=== PATIENT | female | born 1980 | race Caucasian/White ===

== ENCOUNTER → 2024-10-28 06:43 | Outpatient (REF) | payer OTHER, SELFPAY | LOC: HWWDC 06:43 | PROVIDERS: ATTENDING PHYSICIAN Nurse Practitioner Adult Health; FAMILY PHYSICIAN Student in an Organized Health Care Education/Training Program | DX: Z12.31 Encounter for screening mammogram for malignant neoplasm of breast (principal) | CPT/HCPCS: 77063; 77067 ==

== ENCOUNTER 2024-11-17 18:58 | Emergency (ER) | payer OTHER, SELFPAY ==
[2024-11-17 19:01] VITALS: BP 138/97
[2024-11-17 19:18] LABS: % Basophils 0.3 % (0-2); % Eosinophils 0.8 % (0-6); % Lymphocytes 26.4 % (20.5-51.1); % Monocytes 4.9 % (1.7-9.3); % Neutrophils 66.6 % (42.2-75.2); Absolute Eosinophils 0.1 10^3/uL (0-0.7); Absolute Immature Granulocytes 0.1 10^3/uL (0-0.05); Absolute Lymphocytes 2.8 10^3/uL (1.2-3.4); Absolute Monocytes 0.5 10^3/uL (0.1-0.6); Absolute Neutrophils 7.1 10^3/uL (1.4-6.5); Hematocrit 36.3 % (37.0-47.0); Hemoglobin 12.7 g/dL (12.0-16.0); Mean Corpuscular Hgb 30.7 pg (27.0-31.0); Mean Corpuscular Volume 87.7 fL (81.0-99.0); Mean Platelet Volume 9.3 fL (7.4-10.4); Nucleated Red Blood Cells % 0 %; Platelet Count 425 10^3/uL (130-400); Red Blood Cell Count 4.14 10^6/uL (4.20-5.40); Red Cell Dist. Width 12.8 % (11.5-14.5); White Blood Cell Count 10.7 10^3/uL (4.8-10.8)
[2024-11-17 19:40] LABS: ALT (SGPT) 32 U/L (0-35); AST (SGOT) 30 U/L (14-36); Albumin 4.6 g/dl (3.5-5.0); Alkaline Phosphatase 93 U/L (38-126); Blood Urea Nitrogen 15 mg/dl (7-17); Calcium 9.5 mg/dl (8.4-10.2); Carbon Dioxide 30 mmol/L (22-30); Glucose 97 mg/dl (70-99); Total Bilirubin 0.4 mg/dl (0.2-1.3); Total Protein 7.6 g/dl (6.3-8.2); eGFR > 60.00
[2024-11-17 19:44] LABS: Chloride 96 mmol/L (98-107); Potassium 3.9 mmol/L (3.5-5.1); Sodium 137 mmol/L (135-145)
[2024-11-17 23:02] VITALS: BP 115/83
[2024-11-17 23:48] VITALS: BMI 28.0
[2024-11-17 23:50] VITALS: BP 125/90
[2024-11-18 00:52] LABS: COVID-19 Antigen Negative (Negative)
[2024-11-18 01:00] VITALS: BP 117/62
--- NOTE | 2024-11-18 01:07 | ED.GENMED ---
History of Present Illness
General
Chief Complaint: Breathing Problem
Source: patient
Exam Limitations: none
Time Seen by Provider: 11/18/24 00:10
Nursing documentation reviewed up to this point in time: agreed with
History of Present Illness
History of Present Illness:
44-year-old female with a past medical history of hypertension presents to the ER for persistent cough and shortness of breath. Patient reports that she started with a hacking cough about 2 weeks ago and it has been constant since that time. She
reports it is productive of clear to yellow sputum. She reports that she has had some associated congestion and initially also had fever although fever has since resolved. She says after a week of symptoms she went to urgent care 11/09/2024 where
she was diagnosed with pneumonia on x-ray there; she says she was started on clarithromycin 500 mg twice daily for pneumonia. She says that she took this for 1 week but despite this treatment she has had worsening cough and is having some
tightness/shortness of breath. For this reason she returned to urgent care today she said she was told that she had worsening pneumonia on the x-ray and she was referred to the ER for evaluation. She denies any chest pain. She denies any GI
symptoms. She denies any leg swelling. Denies any other complaints. She denies any history of asthma. She says she is a former smoker quit 7 years ago.
Review of Systems
Review of Systems
All Other Systems: ROS reviewed and negative except as documented in HPI and ROS
Constitutional: Denies fever or chills
EENT: Reports other (Congestion); Denies sore throat
Respiratory: Reports cough and trouble breathing
Cardiac: Denies chest pain or palpitations
ABD/GI: Denies abdominal pain, nausea, vomiting or diarrhea
: Denies flank pain
Musculoskeletal: Denies edema, neck pain or back pain
Neurological: Denies dizzy or headache
Phy Exam
Physical Exam
Physical Exam:
General: Awake, alert, oriented x3; no acute distress
Head: Normocephalic, atraumatic
Eyes: Conjunctiva normal, sclera anicteric
Throat: Airway intact, handling secretions
Neck: Trachea midline, moist mucous membranes
Lungs: Frequent coughing throughout exam; she has a normal respiratory, normal work of breathing, normal pulse ox on room air; she does have scattered bilateral rales/rhonchi
Heart: Regular rate and rhythm, no murmurs, gallops, or rubs
Abd: Soft, non distended, nontender
Neuro: No gross deficits
Extremities: No edema in extremities, equal pulses in all extremities
Scores
Heart Failure Risk
Heart Failure Risk Score: Not Applicable
Heart Score for Chest Pain Patients
STEMI patient?: Not applicable
Withdrawal Assessment of Alcohol
Withdrawal Assessment Completed?: Not applicable
Course
Orders/Labs/Results
Orders:
Orders
11/17/24 19:08
CMP [Comprehensive Metabolic Panel] Urgent
Complete Blood Count/With Diff Urgent
HCG, Serum Qualitative Screen Urgent
Comment: ADDED
11/18/24 00:22
CT Chest W/o Iv Contrast Urgent
Comment:
Reason For Exam: persisitent cough
COVID-19 Antigen Urgent
Source: Nasal Swab
Influenza A+B Rapid Molecular Urgent
WILLIAM Source: Nasal Swab
Specimen Description:
11/18/24 00:38
Add On- LAB Urgent
Tests Added?: HCG qual
11/18/24 03:16
LevoFLOXacin [Levaquin] 750 mg PO NOW STA
Abnormal Lab Results
11/17/24
19:08
RBC 4.14 L 10^6/uL
(4.20-5.40)
Hct 36.3 L %
(37.0-47.0)
Plt Count 425 H 10^3/uL
(130-400)
Abs Immat Gran (auto) 0.1 H 10^3/uL
(0-0.05)
Absolute Neuts (auto) 7.1 H 10^3/uL
(1.4-6.5)
Immature Gran % 1.0 H %
(0-0.5)
Chloride 96 L mmol/L
(98-107)
11/17/24 19:08
11/17/24 19:08
Vital Signs
Initial and Last Documented VS:
Initial Vital Signs
Temp Pulse Resp BP Pulse Ox
37.1 C 88 18 138/97 98
11/17/24 19:01 11/17/24 19:01 11/17/24 19:01 11/17/24 19:01 11/17/24 19:01
Last Documented Vital Signs
Temp Pulse Resp BP Pulse Ox
36.9 C 74 19 117/81 96
11/17/24 23:02 11/18/24 03:23 11/18/24 03:23 11/18/24 03:23 11/18/24 03:23
MDM/Problems Addressed
Differential Diagnosis Includes:
Pneumonia, bronchitis, viral URI
MDM/Problems Addressed:
44-year-old female presents to the emergency room from urgent care�diagnosed with pneumonia last week and symptoms worsening despite 1 week of clarithromycin. Apparently had an x-ray today that showed worsening pneumonia. She has been symptomatic
with cough, chest tightness/shortness of breath for about 2 weeks. Vitals normal, exam as above. She had labs sent in triage including a CBC and a CMP which were unremarkable. Swabs for COVID and flu are negative. I was able to review x-ray from
11/09 as well as x-ray from 11/18 at urgent care�neither x-ray appears to show pneumonia on my review. Can check CT chest to rule out occult process. Suspect more likely that symptoms are due to bronchitis. May benefit more from albuterol and
steroids.
CT chest reviewed�this does show a left lower lobe pneumonia as well as some groundglass opacity in the left upper lobe. Patient's vital signs are normal. Her labs are unremarkable. Although she was on antibiotics clarithromycin is really not
adequate coverage for community-acquired pneumonia. Her CURB 65 score is 0. I had a long discussion with the patient and I explained that I think she would do well on an alternate antibiotic course and can reasonably be discharged home. She feels
very comfortable with this prefers not to be admitted to the hospital. Using shared decision making we will discharge on Raul�we did discuss that if she is not noticing improvement in the next few days with this antibiotic adjustment that she
should return to the emergency room. All questions answered.
*Radiology
Radiology exam reviewed: preliminary read by ED provider (Reviewed outpatient x-rays) and radiology read reviewed
*Pulse Oximetry
Patient hypoxic: no
*Critical Care Note
Total Time (30-74mins, 75-104mins- exclusive of procedures): Not Applicable
Data Reviewed
Review of Other/Old Records Reveals: Radiology Studies (Reviewed external radiology studies)
Source: patient
Patient Management
Escalation/DeEscalation of care consider admission/obs:
Shared decision making�discharged
ED Attending Note
-
Portions of this chart may have been created with voice recognition software.� Occasional wrong word or��sound alike� substitutions may have occurred due to the inherent limitations of voice recognition software.
Discharge Plan
Departure
Patient Disposition: Home (Routine Discharge)
Date of Disposition: 11/18/24
Time of Disposition: 03:15
Patient with high blood pressure during this ER visit?: No
Discharge Problem:
Pneumonia
Instructions: Pneumonia in adults
Prescriptions:
New
levofloxacin 750 mg tablet
750 mg PO DAILY Qty: 10 0RF
No Action
hydrochlorothiazide 25 mg Tablet
25 mg PO DAILY
lisinopril 2.5 mg Tablet
2.5 mg PO DAILY
Referrals:
Mary Smith MD [Family Provider] - Follow up in 2-3 days
Activity Restrictions/Additional Instructions:
Thank you for visiting the Emergency Department at [facility].
1. Please schedule a follow up appointment as directed. Call first thing tomorrow morning to make an appointment.
2. If indicated, please take your medications as instructed and indicated on discharge paperwork.
3. If any of your symptoms do not improve, or persist, or become more severe within 6-12 hours, please return to the emergency department for further care.
4. Please return to the emergency department if you develop a headache, neck pain/stiffness, fever greater than 100.4F, chest pain, shortness of breath, persistent nausea, vomiting, slurred speech, difficulty walking, numbness/tingling, weakness,
signs of infection or any other symptoms that are worrisome to you.
Please call [phone] if you have any questions.
Interventions
Interventions:
*Risk Screen - Suicide Last Done: 11/17/24 19:01
*General Assessment Last Done: 11/17/24 19:01
*Neglect/Abuse Screening Last Done: 11/17/24 19:01
ED- Fall Risk Assessment Last Done: 11/17/24 23:12
*ED COVID-19 Vaccine History Last Done: 11/17/24 19:01
*Nursing Disposition Last Done: 11/18/24 03:24
ED- Cardiac Assessment Last Done: 11/17/24 23:12
ED- Pulmonary Assessment Last Done: 11/17/24 23:12
Discharge Date and Time
Discharge Date/Time: 11/18/24 03:24
Print Language: GHANAIAN
[2024-11-18 01:38] LABS: HCG, Serum Qualitative Screen Negative
[2024-11-18] MEDS: LEVAQUIN 750 MG PO (03:20)
[2024-11-18 03:23] VITALS: BP 117/81
== END 2024-11-18 03:24 | disposition home or self-care (01) ==
LOC: EMR 18:58
PROVIDERS: Emergency Medicine; EMERGENCY PHYSICIAN Emergency Medicine; FAMILY PHYSICIAN Student in an Organized Health Care Education/Training Program
DX: J18.9 Pneumonia, unspecified organism (principal); I10 Essential (primary) hypertension; Z87.891 Personal history of nicotine dependence
CPT/HCPCS: 99284; 71250; 80053; 84703; 85025; 87502; 87811

== ENCOUNTER → 2024-12-29 10:45 | Outpatient (REF) | payer OTHER, SELFPAY | LOC: WDC 10:45 | PROVIDERS: ATTENDING PHYSICIAN Obstetrics & Gynecology; FAMILY PHYSICIAN Student in an Organized Health Care Education/Training Program | DX: R92.2 Inconclusive mammogram (principal) | CPT/HCPCS: 76641 ==

== ENCOUNTER → 2025-07-03 13:46 | Outpatient (REF) | payer OTHER, SELFPAY | LOC: WDC 13:46 | PROVIDERS: ATTENDING PHYSICIAN Obstetrics & Gynecology; FAMILY PHYSICIAN Student in an Organized Health Care Education/Training Program | DX: R92.8 Other abnormal and inconclusive findings on diagnostic imaging of breast (principal) | CPT/HCPCS: 76642 ==

== ENCOUNTER → 2025-07-11 09:39 | Outpatient (REF) | payer OTHER, SELFPAY | LOC: WDC 09:39 | PROVIDERS: ATTENDING PHYSICIAN Obstetrics & Gynecology | DX: N64.4 Mastodynia (principal) | CPT/HCPCS: 76642; 77061; 77065 ==